=== PATIENT | male | born 1930 | race Caucasian/White ===

== ENCOUNTER 2017-05-24 12:06 | Emergency (ER) | payer MEDICARE, OTHER ==
[~2017-05-24] VITALS: Ht 175.3 cm; Wt 71.0 kg
[2017-05-24 12:35] VITALS: Ht 175.3 cm; Wt 71.0 kg
[2017-05-24 13:54] LABS: BASOPHILS % 0.4 % (0.0-2.0); EOSINOPHILS # 0.2 10^3/ul (0.0-0.5); EOSINOPHILS % 1.6 % (0.0-7.0); HEMATOCRIT 39.9 % (42.0-52.0); HEMOGLOBIN 13.3 g/dl (14.0-18.0); LYMPHOCYTES # 0.9 10^3/ul (0.8-2.9); LYMPHOCYTES % 10.3 % (15.0-51.0); MEAN CORPUSCULAR HGB CONC 33.3 g/dl (32.0-37.0); MEAN PLATELET VOLUME 8.5 fl (7.4-10.4); MONOCYTE # 0.8 10^3/ul (0.3-0.9); MONOCYTES % 8.6 % (0.0-11.0); NEUTROPHIL # 7.2 10^3/ul (1.6-7.5); NEUTROPHILS % 78.7 % (39.0-77.0); PLATELET COUNT 256 10^3/UL (140-415); RED BLOOD COUNT 4.29 10^6/ul (4.70-6.10); RED CELL DISTRIBUTION WIDTH 13.4 % (11.5-14.5); WHITE BLOOD COUNT 9.1 10^3/ul (4.8-10.8)
--- NOTE | 2017-05-24 14:00 | RADRPT ---
PROCEDURE: XR Chest. CLINICAL INDICATION: Pain status post trauma TECHNIQUE: AP Portable chest. COMPARISON: None available FINDINGS: The soft tissues and bones are remarkable for mild thoracic spondylosis and bilateral glenohumeral a nd acromioclavicular osteoarthropathy. A right upper lobe 6 mm calcified granuloma is present. No fo vinod infiltrates, masses or effusions are present. Mild vascular calcifications are present of the th oracic aorta and a normal size heart is present. No pleural effusions or pneumothorax is present. IMPRESSION: 1. No radiographic evidence of acute cardiopulmonary disease 2. Right upper lobe 6 mm calcified granuloma 3. Mild atherosclerotic vascular disease 4. 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
[2017-05-24 14:12] LABS: INR 1.09; PARTIAL THROMBOPLASTIN TIME 30.9 Sec (25.0-35.0); PROTIME 14.1 Sec (12.2-14.2); PT RATIO 1.1
[2017-05-24 14:16] LABS: ALBUMIN 4.1 g/dl (3.3-4.9); BILIRUBIN,INDIRECT 0.5 mg/dl (0-1.1); BILIRUBIN,TOTAL 0.5 mg/dl (0.2-1.3); CALCIUM 8.7 mg/dl (8.4-10.2); CREATININE 1.03 mg/dl (0.61-1.24); POTASSIUM 4.1 mmol/L (3.5-5.1); TOTAL PROTEIN 7.6 g/dl (6.1-8.1)
--- NOTE | 2017-05-24 14:17 | RADRPT ---
PROCEDURE: CT Brain without contrast. CLINICAL INDICATION: Fall, trauma, pain. TECHNIQUE: A CT of the brain was performed on multidetector high-resolution CT scanner utilizing a xial sections from the skull base through the vertex without contrast. The scan was reviewed in sof t tissue brain and high frequency resolution bone algorithm windows. Images were reviewed on a high -resolution PACS workstation. One or more the following does reduction techniques were utilized: Aut omated exposure control, adjustment of the mA/ or kV according to patient's size, or use of iterativ e reconstruction technique. The exam CTDI = 42.93 mGy and the DLP = 630.2 mGy-cm. COMPARISON: None available. FINDINGS: The ventricles and sulci are mildly prominent indicative of volume loss. There is no intracranial h emorrhage, mass effect or midline shift. No abnormal intra-axial or extra-axial fluid collections a re seen. The perkins/white matter differentiation is preserved. There are moderate foci of hypoattenuation in the white matter, which are nonspecific in etiology bu t likely reflect chronic small vessel ischemic changes. There are mild intracranial vascular calcif ications consistent with atherosclerosis. The visualized paranasal sinuses are essentially clear. R ight frontal scalp and right periorbital soft tissue swelling and hematoma are noted measuring up to 1.4 cm in thickness without underlying skull fracture. IMPRESSION: 1. No acute intracranial hemorrhage, transcortical infarction or mass effect. 2. Mild intracranial atherosclerosis and moderate chronic small vessel ischemic changes. 3. Mild generalized cerebral volume loss. 4. Right frontal scalp and right periorbital soft tissue swelling and hematoma without underlying s kull fracture. RPTAT: HH .Za Beth MD, MD Date Time Electronically viewed and signed by .Za Beth MD, MD on 05/24/2017 14:16 .N/
[2017-05-24] MEDS ORDERED: METO-336 PO (14:20)
--- NOTE | 2017-05-24 14:21 | RADRPT ---
PROCEDURE: CT scan facial bones CLINICAL INDICATION: Trauma. Facial injury. Pain. TECHNIQUE: CT scan of the face was performed on the a high-resolution multidetector CT scanner wit h multiple contiguous axial images obtained through the face. Coronal and sagittal reformatted imag es were obtained from the axial source images. One or more the following does reduction techniques w ere utilized: Automated exposure control, adjustment of the mA/ or kV according to patient's size, o r use of iterative reconstruction technique. Exam CTDI = 29.54 mGy and the DLP = 610.09 mGy-cm. COMPARISON: None available. FINDINGS: Right frontal scalp and right periorbital soft tissue swelling and hematoma are noted measuring up t o 1.4 cm in thickness without underlying skull fracture. No acute fracture or dislocation is seen. There is thinning of bilateral lens indicative of prior le ns replacement. The orbital globes are otherwise unremarkable. Nasal septum is intact. Paranasal si nuses demonstrate mild scattered mucosal thickening mainly in maxillary sinuses. Several missing destiney th are noted. Moderate left and mild right degenerative changes of temporomandibular joints are noted. IMPRESSION: 1. Right frontal scalp and right periorbital soft tissue swelling and hematoma without underlying skull fracture. 2. No acute facial fracture or dislocation. RPTAT: HH .Za Beth MD, MD Date Time Electronically viewed and signed by .Za Beth MD, MD on 05/24/2017 14:20 .N/
--- NOTE | 2017-05-24 14:26 | ERD ---
ER Documentation Chief Complaint Chief Complaint right eye pain and right forehead abrasion s/p fall, no ko HPI This is an 86-year-old male not on any blood thinners who is presenting after a mechanical fall with a head injury. The patient was reportedly going up his steps at home when he missed a step and fell forward. He landed on his extremities but he did hit the right side of his face on a step. He has bruising, swelling and tenderness around the right eye, but he is vision is intact. Aside from the right periorbital bruising, there is no other evidence of trauma. He is able to move his eyes in all directions without difficulty or pain. He does not endorse a headache. He did not lose consciousness. He has no neck or back pain. He has no chest pain or trouble breathing. He has no abdominal pain. He has no nausea or vomiting. He does endorse some tenderness to his knees, left mostly. He has not been incontinent of urine or stool. He has no saddle anesthesia. He has no focal deficits. He has no weakness or numbness or tingling to the face or extremities. ROS All systems reviewed and are negative except as per history of present illness. Medications Home Meds Reported Medications Metoprolol Succinate* (Toprol XL*) 100 Mg Tab.sr.24h, 100 MG PO DAILY, #30 TAB 05/24/17 Allergies Allergies: Coded Allergies: No Known Allergy (Unverified , 05/24/17) PMhx/Soc History of Surgery: Yes (Abdominal surgery as a child) Hx Neurological Disorder: No Hx Respiratory Disorders: No Hx Cardiac Disorders: Yes (HTN) Hx Psychiatric Problems: No Hx Miscellaneous Medical Probl: No Hx Alcohol Use: No Hx Substance Use: No Hx Tobacco Use: No Smoking Status: Never smoker FmHx Family History: No coronary disease, No diabetes Physical Exam Vitals Vital Signs Date Time Temp Pulse Resp B/P Pulse Ox O2 Delivery O2 Flow Rate FiO2 05/24/17 16:00 50 20 170/73 99 Room Air 05/24/17 12:35 98.2 72 18 180/84 98 Physical Exam Const: No apparent distress, well-developed, well-nourished Head: Periorbital ecchymosis, abrasion and edema Eyes: Normal Conjunctiva. Extraocular movements intact. ENT: Normal External Ears, Nose and Mouth. Neck: Full range of motion. ~ No meningismus. Resp: Clear to auscultation bilaterally Cardio: Regular rate and rhythm, no murmurs Abd: Soft, non tender, non distended. + Well-healed abdominal surgical scar. Normal bowel sounds Skin: No petechiae or rashes Back: No midline or flank tenderness Ext: No cyanosis, or edema Neur: Awake and alert, oriented 4. Cranial nerves intact. No facial droop. Normal strength and sensation in all extremities. Coordination with finger to nose normal. Psych: Normal Mood and Affect Result Diagram: 05/24/17 1330 05/24/17 1330 Results 24 hrs Laboratory Tests Test 05/24/17 13:30 White Blood Count 9.110^3/ul Red Blood Count 4.2910^6/ul Hemoglobin 13.3g/dl Hematocrit 39.9% Mean Corpuscular Volume 93.0fl Mean Corpuscular Hemoglobin 31.0pg Mean Corpuscular Hemoglobin Concent 33.3g/dl Red Cell Distribution Width 13.4% Platelet Count 49860^3/UL Mean Platelet Volume 8.5fl Neutrophils % 78.7% Lymphocytes % 10.3% Monocytes % 8.6% Eosinophils % 1.6% Basophils % 0.4% Nucleated Red Blood Cells % 0.0/100WBC Neutrophils # 7.210^3/ul Lymphocytes # 0.910^3/ul Monocytes # 0.810^3/ul Eosinophils # 0.210^3/ul Basophils # 0.010^3/ul Nucleated Red Blood Cells # 0.010^3/ul Prothrombin Time 14.1Sec Prothrombin Time Ratio 1.1 INR International Normalized Ratio 1.09 Activated Partial Thromboplast Time 30.9Sec Sodium Level 145mmol/L Potassium Level 4.1mmol/L Chloride Level 109mmol/L Carbon Dioxide Level 26mmol/L Anion Gap 14 Blood Urea Nitrogen 20mg/dl Creatinine 1.03mg/dl Glucose Level 111mg/dl Calcium Level 8.7mg/dl Total Bilirubin 0.5mg/dl Direct Bilirubin 0.00mg/dl Indirect Bilirubin 0.5mg/dl Aspartate Amino Transf (AST/SGOT) 22IU/L Alanine Aminotransferase (ALT/SGPT) 21IU/L Alkaline Phosphatase 85IU/L Total Protein 7.6g/dl Albumin 4.1g/dl Lipase 119U/L Procedures/[facility] MDM The patient's presentation warrants further investigation. The patient has evidence of a head trauma. A trauma workup will be performed. We will obtain CTs of the head, face and cervical spine. Given his age, there is the possibility of a hyperextension injury. That said, his exam is reassuring. We also obtain blood work to evaluate any further trauma. LABS The patient's blood work was obtained and reviewed. The patient's CBC shows no leukocytosis or left shift. The patient is afebrile and does not appear systemically ill. I do not suspect a systemic infection. The patient has a mild anemia that doesn't require emergent treatment. The patient's platelet count is unremarkable. The patient's CMP shows no signs of emergent metabolic or electrolyte abnormality. The patient has normal renal and hepatic function testing. Lipase is negative. IMAGING CT Head IMPRESSION: No acute intracranial hemorrhage, transcortical infarction or mass effect. Mild intracranial atherosclerosis and moderate chronic small vessel ischemic changes. Mild generalized cerebral volume loss. Right frontal scalp and right periorbital soft tissue swelling and hematoma without underlying skull fracture. Electronically viewed and signed by .Za Beth MD, on 05/24/2017 14: 16 CT Face IMPRESSION: Right frontal scalp and right periorbital soft tissue swelling and hematoma without underlying skull fracture. No acute facial fracture or dislocation. Electronically viewed and signed by .Za Beth MD, MD on 05/24/2017 14:20 CT C-spine IMPRESSION: 1. Straightening of normal cervical lordosis. 3 mm retrolisthesis at C3-C4 and 3 mm anterolisthesis at C7-T1. 2. No acute fracture cervical spine fracture. 3. Multilevel moderate to severe degenerative changes of the cervical spine, most prominent at C3-C4 through C6-C7. 4. Posterior disc osteophyte complexes contribute to mild spinal canal narrowing at C3-C4 and C5-C6. 5. Multilevel foraminal stenosis as outlined in details in findings. Electronically viewed and signed by Kade Beth MD, on 05/24/2017 14: 27 Chest Xray IMPRESSION: 1. No radiographic evidence of acute cardiopulmonary disease 2. Right upper lobe 6 mm calcified granuloma 3. Mild atherosclerotic vascular disease 4. Mild thoracic spondylosis, bilateral glenohumeral and acromioclavicular osteoarthropathy Electronically viewed and signed by .Angela Lucas MD, on 05/24/2017 14: 00 XR Left Knee IMPRESSION: Negative for acute fracture or dislocation. 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 Vascular calcifications consistent with atherosclerosis. Electronically viewed and signed by .Arturo Feliciano MD, on 05/24/2017 17:29 TREATMENT/DISPOSITION The patient was stable throughout assessment. The patient has significant multilevel spinal degenerative disease and severe osteoarthritis, but there is no obvious evidence of acute fracture or lytic dislocation. The patient CT imaging of the head and face revealed no acute intracranial abnormality or fracture or dislocation. The patient does have soft tissue swelling around the right orbit that was clinically apparent. The patient's cervical spine was evaluated. He had no midline tenderness. He was able to range his neck in all directions. His cervical spine will be clinically cleared. I have low suspicion of concussion in this patient, but concussion symptoms that he should look out for were described to the patient and his daughter. At this time, I feel that the patient stable for discharge. He will need follow -up with his primary care physician in 2-3 days. He will be given strict precautions with which to return to the emergency department. The patient's blood pressure was elevated at greater than 120/80 while in the emergency department. The patient was otherwise stable with no evidence of hypertensive urgency or emergency. The patient will require reevaluation of his blood pressure in 2-3 days, but this may be completed by a primary care physician as an outpatient. He does not require admission for blood pressure control. Departure Diagnosis: Primary Impression: Traumatic periorbital ecchymosis of right eye Encounter type: initial encounter Qualified Code: S05.11XA - Traumatic periorbital ecchymosis of right eye, initial encounter Additional Impression: Acute head injury without loss of consciousness Encounter type: initial encounter Qualified Code: S09.90XA - Acute head injury without loss of consciousness, initial encounter Condition: Stable LONG WOOD MD May 24, 2017 14:26
--- NOTE | 2017-05-24 14:27 | RADRPT ---
PROCEDURE: CT cervical spine without contrast CLINICAL INDICATION: Trauma. Neck pain. TECHNIQUE: CT scan of the cervical spine was performed on a [facility] No IV contrast was administered. Coronal and sagittal reformatted images were obtained from th e axial source images. Images were reviewed on a high-resolution PACS workstation. One or more the f ollowing does reduction techniques were utilized: Automated exposure control, adjustment of the mA/ or kV according to patient's size, or use of iterative reconstruction technique. Exam CTDI = 22.03 m Gy and the DLP = 383.99 mGy-cm. COMPARISON: None available. FINDINGS: There is straightening of the alignment of the cervical spine with loss of the normal cervical lordo sis. There is 3 mm retrolisthesis at C3-C4 and 3 mm anterolisthesis at C7-T1. No acute fracture or d islocation is seen. The vertebral body heights and disk spaces are preserved. No mass, hematoma, o r other soft tissue abnormality is seen. There are multilevel moderate to severe degenerative changes of the cervical spine, manifested by os teophytosis and disc height narrowing, most prominent at C3-C4 through C6-C7. Uncovertebral osteophy laz and facet arthropathy result in multilevel foraminal stenosis: at C2-C3 mild on the right, at C3 -C4 moderate bilaterally, at C4-C5 moderate on the right and moderate to severe on the left, and at C5-C6 and C6-C7 moderate to severe bilaterally. Posterior disc osteophyte complexes contribute to mi ld spinal canal narrowing at C3-C4 and C5-C6. Effacement of the right piriformis sinus is noted which could be due to opposition of its matthews. IMPRESSION: 1. Straightening of normal cervical lordosis. 3 mm retrolisthesis at C3-C4 and 3 mm anterolisthesi s at C7-T1. 2. No acute fracture cervical spine fracture. 3. Multilevel moderate to severe degenerative changes of the cervical spine, most prominent at C3-C 4 through C6-C7. 4. Posterior disc osteophyte complexes contribute to mild spinal canal narrowing at C3-C4 and C5-C6 . 5. Multilevel foraminal stenosis as outlined in details in findings. RPTAT: HH .Za Beth MD, MD Date Time Electronically viewed and signed by .Za Beth MD, MD on 05/24/2017 14:27 .N/
[2017-05-24 16:00] VITALS: BP 170/73; PULSE 50; RESP 20
--- NOTE | 2017-05-24 17:29 | RADRPT ---
PROCEDURE: XR left Knee. CLINICAL INDICATION: Fall with generalized pain. TECHNIQUE: 2 views of the left knee are available for review. COMPARISON: None available FINDINGS: There is no acute fracture, dislocation, or other osteoarticular abnormality. The alignm ent is normal. There are vascular calcifications and likely a small joint effusion. The surrounding soft tissues are otherwise unremarkable. The osseous mineralization is within normal limits. There is tricompartmental osteoarthritis, which is severe in the lateral femorotibial compartment. IMPRESSION: 1. Negative for acute fracture or dislocation. 2. 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 3. Vascular calcifications consistent with atherosclerosis. RPTAT: HLBP .Arturo Feliciano MD, Date Time Electronically viewed and signed by .Arturo Feliciano MD, MD on 05/24/2017 17:29 .P/
== END 2017-05-25 13:05 | disposition home or self-care (01) ==
LOC: E/R 12:06
DX: S05.11XA Contusion of eyeball and orbital tissues, right eye, initial encounter (principal); S09.90XA Unspecified injury of head, initial encounter; I10 Essential (primary) hypertension; W10.9XXA Fall (on) (from) unspecified stairs and steps, initial encounter; Y92.009 Unspecified place in unspecified non-institutional (private) residence as the place of occurrence of the external cause
CPT/HCPCS: 70450; 70486; 71010; 72125; 73560; 80048; 80076; 83690; 85025; 85610; 85730